=== PATIENT | female | born 1935 | race Two or more races ===

== ENCOUNTER 2018-07-23 13:48 | Inpatient (IN) | payer OTHER ==
[~2018-07-23] VITALS: Ht 152.4 cm; Wt 81.2 kg
[2018-07-23] MEDS ORDERED: FOLIC ACID1 MG PO (15:45)
[2018-07-23] MEDS ORDERED: SYNTHROID150 MCG PO (15:45)
[2018-07-23] MEDS ORDERED: VERAPAMIL ER240 MG PO (15:45)
[2018-07-23] MEDS ORDERED: COZAAR50 MG PO (15:46)
[2018-07-23] MEDS ORDERED: ZOLOFT50 MG PO (15:46)
[2018-07-30] MEDS ORDERED: COLACE100 MG PO (09:11)
[2018-07-30] MEDS ORDERED: PERCOCET 5-3251 EACH PO (09:11)
[2018-07-30] MEDS ORDERED: CLONAZEPAM0.5 MG PO (09:11)
== END 2018-07-31 14:17 | disposition home or self-care (01) | DRG 472 ==
LOC: SURH 07-30 04:48 → O/R 07-30 04:48 → SURH 07-30 07:00
PROVIDERS: ADMIT Orthopaedic Surgery Orthopaedic Surgery of the Spine
PROC: 0RT30ZZ Resection of Cervical Vertebral Disc, Open Approach (ICD-10-PCS; 2018-07-30)
PROC: 07DS0ZZ Extraction of Vertebral Bone Marrow, Open Approach (ICD-10-PCS; 2018-07-30)
PROC: 4A12X4Z Monitoring of Cardiac Electrical Activity, External Approach (ICD-10-PCS; 2018-07-30)
PROC: 0RG20A0 Fusion of 2 or more Cervical Vertebral Joints with Interbody Fusion Device, Anterior Approach, Anterior Column, Open Approach (ICD-10-PCS; principal; 2018-07-30 07:00)
DX: M50.01 Cervical disc disorder with myelopathy, high cervical region (principal); M47.12 Other spondylosis with myelopathy, cervical region; I10 Essential (primary) hypertension; E11.9 Type 2 diabetes mellitus without complications

== ENCOUNTER → 2018-07-23 15:51 | Outpatient (CLI) | payer OTHER ==
[~2018-07-23 15:51] MED LIST: CLONAZEPAM0.5 MG PO; COLACE100 MG PO; COZAAR50 MG PO; FOLIC ACID1 MG PO; PERCOCET 5-3251 EACH PO; SYNTHROID150 MCG PO; VERAPAMIL ER240 MG PO; ZOLOFT50 MG PO
== END | disposition home or self-care (01) ==
LOC: EKG 15:51
DX: Z01.810 Encounter for preprocedural cardiovascular examination (principal)